=== PATIENT | male | born 1965 ===

== ENCOUNTER 2017-12-15 17:10 | Emergency (ER) | payer MEDICARE, MEDICAID ==
[2017-12-15 17:31] VITALS: BP 123/69
--- NOTE | 2017-12-15 18:20 | ED ---
Respiratory - HPI Summary HPI Summary: 52 yr male with the complaint of runny nose, coughing. Onset the past three days. He had some nausea and vomiting and diarrhea. No fever. He has been around others with similar symptoms. Denies SOB, abdominal pain. - History of Current Complaint Chief Complaint: UCGeneralIllness Stated Complaint: COUGH,VOMITING,DIARRHEA Time Seen by Provider: 12/15/17 17:52 Pain Intensity: 0 - Allergy/Home Medications Allergies/Adverse Reactions: Allergies Allergy/AdvReac Type Severity Reaction Status Date / Time No Known Allergies Allergy Verified 12/15/17 17:30 Home Medications: Home Medications Canagliflozin/Metformin HCl [Invokamet 150-1,000 mg Tablet] 1 each PO DAILY 02/20 [History Confirmed 12/15/17] PMH/Surg Hx/FS Hx/Imm Hx Endocrine/Hematology History: Reports: Hx Diabetes Cardiovascular History: Reports: Hx Hypertension - TAKES MEDICATION Denies: Hx Pacemaker/ICD History: Denies: Hx Dialysis, Hx Renal Disease Sensory History: Denies: Hx Hearing Aid Psychiatric History: Denies: Hx Panic Disorder Infectious Disease History: No Infectious Disease History: Denies: Traveled Outside the [place] in Last 30 Days - Family History Known Family History: Positive: None - Social History Alcohol Use: None Substance Use Type: Reports: None Smoking Status (MU): Former Smoker Review of Systems Constitutional: Negative Positive: Nasal Discharge Positive: Cough Positive: Vomiting, Diarrhea, Nausea All Other Systems Reviewed And Are Negative: Yes Physical Exam Triage Information Reviewed: Yes Vital Signs On Initial Exam: Initial Vitals Temp Pulse Resp BP Pulse Ox 98.4 F 94 16 123/69 97 12/15/17 17:24 12/15/17 17:24 12/15/17 17:24 12/15/17 17:24 12/15/17 17:24 Vital Signs Reviewed: Yes Appearance: Positive: Well-Appearing, No Pain Distress Skin: Positive: Warm, Skin Color Reflects Adequate Perfusion Head/Face: Positive: Normal Head/Face Inspection Eyes: Positive: EOMI ENT: Positive: Pharynx normal, Nasal congestion, TMs normal Neck: Positive: Nontender Respiratory/Lung Sounds: Positive: Clear to Auscultation, Breath Sounds Present Cardiovascular: Positive: RRR. Negative: Murmur Abdomen Description: Positive: Nontender Musculoskeletal: Positive: Strength/ROM Intact Neurological: Positive: Sensory/Motor Intact, Alert, Oriented to Person Place, Time, CN Intact II-III Psychiatric: Positive: Normal - [place] Coma Scale Best Eye Response: 4 - Spontaneous Best Motor Response: 6 - Obeys Commands Best Verbal Response: 5 - Oriented Coma Scale Total: 15 Diagnostics - Vital Signs Vital Signs Temp Pulse Resp BP Pulse Ox 12/15/17 17:24 98.4 F 94 16 123/69 97 - Laboratory Lab Statement: Any lab studies that have been ordered have been reviewed, and results considered in the medical decision making process. Disposition - Course Course Of Treatment: 52 yr old with resolved GI symptoms. He looks well. He still has cough. Rx with tessalyanni nguyens - Diagnoses Provider Diagnoses: Upper respiratory infection Discharge - Sign-Out/Discharge Documenting (check all that apply): Patient Departure All imaging exams completed and their final reports reviewed: No Studies - Discharge Plan Condition: Good Disposition: HOME Prescriptions: Benzonatate CAP* [Tessalon 100 MG CAP*] 100 mg PO TID #10 cap Patient Education Materials: Upper Respiratory Infection (ED) Referrals: Betina Wakefield MD [Primary Care Provider] - 1 Day - Billing Disposition and Condition Condition: GOOD Disposition: Home
== END 2017-12-15 18:18 | disposition home or self-care (01) ==
LOC: UCCORT 17:10
DX: J06.9 Acute upper respiratory infection, unspecified (principal); E11.9 Type 2 diabetes mellitus without complications; I10 Essential (primary) hypertension; Z87.891 Personal history of nicotine dependence
CPT/HCPCS: 99212; G0463